=== PATIENT | male | born 1970 | race Caucasian/White ===

== ENCOUNTER 2018-06-24 02:37 | Outpatient (CLI) | payer MEDICARE, MEDICAID, SELFPAY ==
[2018-06-24 09:27] LABS: HCT 46.1 % (40.0-50.0); HGB 15.3 g/dL (13.5-17.5); Mean Corp. HGB Concentration 33.2 g/dL (32.0-36.0); Mean Corpuscular Hemoglobin 29.7 pg (27.0-33.0); Mean Corpuscular Volume 89.5 fL (80-95); Mean Platelet Volume 9.6 fL (8.0-11.0); Platelet Count 270 x1000/uL (130-400); RBC 5.15 m/cumm (4.50-6.00); RBC Distribution Width 14.2 % (11.8-14.1); White Blood Cell Count 7.83 k/cumm (4.4-10.8)
[2018-06-24 10:35] LABS: ALT 20 U/L (12-78); AST 22 U/L (15-37); Albumin 3.7 g/dL (3.4-5.0); Alkaline Phosphatase 95 U/L (46-116); Anion Gap 11.8 mmol/L (3-11); BUN 12 mg/dL (7-18); Bilirubin, Total 0.2 mg/dL (0.2-1.0); CO2 25.2 mmol/L (21.0-32.0); CREATININE 1.21 mg/dL (0.70-1.30); Calcium 8.7 mg/dL (8.5-10.1); Chloride 103 mmol/L (98-107); Cholesterol 151 mg/dL (50-200); Glucose 104 mg/dL (70-100); HDL Cholesterol 42 mg/dL (40-60); LDL CHOLESTEROL 96 mg/dL (<100); Magnesium 1.7 mg/dL (1.8-2.4); Potassium 4.4 mmol/L (3.5-5.1); Sodium 140 mmol/L (136-145); Total Protein 7.7 g/dL (6.4-8.2); Triglyceride 64 mg/dL (30-150)
== END 2018-06-24 02:57 ==
LOC: LOS 08:23 → LBO 08:24
PROVIDERS: PCP General Practice; Visit Provider Nurse Practitioner Family
DX: F33.1 Major depressive disorder, recurrent, moderate (principal); Z79.899 Other long term (current) drug therapy; R55 Syncope and collapse
CPT/HCPCS: 36415; 80053; 80061; 83721; 85027; 83735

== ENCOUNTER 2018-12-17 18:12 | Emergency (ER) | payer MEDICARE, MEDICAID, SELFPAY ==
[2018-12-17 18:13] VITALS: BP 115/76; PULSE 72; RESP 14; TEMP 36.8; O2SAT 95
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
[2018-12-17] MEDS: Acetaminophen 325 MG TAB 650 MG PO (19:05)
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
[2018-12-17 20:50] VITALS: BP 115/76; PULSE 72; RESP 14; O2SAT 95
== END 2018-12-17 20:48 | disposition home or self-care (01) ==
PROVIDERS: Emergency Provider Student in an Organized Health Care Education/Training Program; PCP General Practice
DX: R51 Headache (principal); M54.2 Cervicalgia; M54.5 Low back pain; V43.52XA Car driver injured in collision with other type car in traffic accident, initial encounter
CPT/HCPCS: 99284; 70450; 72100; 72125; L0172

== ENCOUNTER 2019-03-13 10:54 | Emergency (ER) | payer MEDICARE, MEDICAID, SELFPAY ==
[2019-03-13 11:39] VITALS: BP 130/79; PULSE 71; RESP 18; TEMP 36.7; O2SAT 93
--- NOTE | 2019-03-13 11:43 | W.ED.GENAD ---
Discharge Plan Disposition Patient Disposition: HOME Condition: Good Discharge Details Chief Complaint: Chest/Rib Clinical Impression: Chest wall injury Primary Care Provider: Jasper Paul ED Provider: Bernadette Key Home Meds and New Rx's Prescriptions: No Action olanzapine 10 MG tablet 10 mg PO HS RF: 0 hydroxyzine HCl 25 MG tablet 2 tab PO BID RF: 0 gabapentin 300 MG capsule 300 mg PO TID RF: 0 Discharge Instructions Instructions: Chest Wall Pain (ED) Additional Instructions: Rest activities as tolerated. Avoid any reinjury or trauma to the chest wall. Use Motrin or Tylenol for soreness if needed. Consider [id number] Lidoderm patches 4% on the area for 12 hours then remove for 12 hours. Be sure to continue deep breathing exercises 10 deep breaths every 1-2 hours while awake to exercise the lungs as discussed until your pain is fully relieved. Make follow-up appoint with your primary care doctor for reevaluation for any persistence of pain. Return for any worsening, alarming symptoms or concerns sooner if needed as discussed Discharge Data Discharge Date/Time-TO BE ENTERED AT DEPARTURE: 03/13/19 12:39 Medical Decision Making Is a very pleasant 48-year-old man who was helping a friend feeding pegs leaning over a fence made of wooden pallets and when his left chest wall was leaned up against the fencing he felt a pop and felt immediate pain in his chest wall. Injury occurred 2 days ago. Patient reports he presents today for persistence of pain and mild difficulty sleeping and positionally getting comfortable at night. Patient denies difficulty breathing, shortness of breath or dizziness. Patient does report pain with deep breathing, coughing, sneezing and change in position. Pain in the left chest wall is reproducible. Patient denies any hematuria. Denies any abdominal pain or distention. Patient is feeling well and has no associated fatigue otherwise. Patient has no history of rib injury in the past. X-rays of the chest wall were ordered. X-rays ultimately unremarkable for identifiable pneumothorax or fracture. Patient does not have any microscopic hematuria associated and vital signs are stable. Patient has no obvious abdominal tenderness on exam his abdomen is soft and nontender with no clear peritoneal signs, rebound or guarding. There is no abdominal wall bruising. We discussed potential risks of chest wall injury. Given patient's lack of hematuria, benign abdominal exam and normal chest x-ray both patient and I feel it is appropriate to discharge this patient home at this time. Deep breathing exercises were discussed, avoiding banding the chest wall was discussed. Pain management was discussed. We will try Tylenol and Motrin at home as well as topical lidocaine patches initially for pain control. Patient encouraged follow-up with his primary care doctor. Alarming signs and symptoms were discussed. The patient was stable and requested discharge. Prior to discharge, my usual and customary return precautions were reviewed with the patient - this included follow-up instructions and reasons to return to the Emergency Department if conditions worsens, does not improve as expected, or other new concerns arise. HPI General Date/Time Provider Initiated Documentation: 03/13/19 10:59. HPI Narrative: 48-year-old man presents for complaints of left rib injury. Patient reports he was leaning over a wooden pallet fence and he felt a pop in the left side of his ribs where the fence was abutting his chest wall. Patient denies neck or back pain. Patient denies difficulty breathing or shortness of breath or wheezing. Pain with deep breathing, coughing, moving or palpation of the area. Patient denies abdominal distention or pain. Denies any obvious hematuria or bowel changes. Eating and drink without difficulty. Patient reports injury occurred 2 days ago he has had some difficulty sleeping for the last 2 days which is what prompted his evaluation today. Patient denies any other concerning, injury. No history of rib fracture in the past. Denies headache or dizziness at this time. Normal energy. Improved with shallow breathing. worse with deep breathing coughing, sneezing, laughing or pushing on the area. Related Data Home Medications Medication Instructions Recorded Confirmed olanzapine 10 mg PO HS 04/27/14 03/13/19 hydroxyzine HCl 2 tab PO BID 01/26/16 03/13/19 gabapentin 300 mg PO TID 11/12/16 03/13/19 Allergies Allergy/AdvReac Type Severity Reaction Status Date / Time No Known Allergies Allergy Unverified 03/13/19 11:42 General Stated Complaint: Chest/Rib ELIZA: 3 Review of Systems All systems reviewed & are unremarkable except as noted in HPI and below Constitutional Constitutional: Denies chills, Denies fatigue, Denies fever(s), Denies headache(s) and Denies malaise ENT Ears, Nose, Mouth, and Throat: Denies headache(s) Cardiovascular Cardiovascular: Reports chest pain, Denies chest pain at rest, Denies chest pain with activity, Denies dyspnea and Denies dyspnea on exertion Respiratory Respiratory: Denies cough, Denies dyspnea, Denies dyspnea on exertion and Denies wheezing Genitourinary Genitourinary: Denies hematuria Neurologic Neurologic: Denies headache(s) Endocrine Endocrine: Denies fatigue Allergic/Immunologic Allergic/Immunologic: Denies wheezing [facility] Social History Smoking/Tobacco Use Status: Current every day Alcohol Intake: never Drug use: Occasionally Substance use type: marijuana Do you feel safe at home: Yes Exam Narrative Exam Narrative: CONST: Healthy appearing patient, in no acute distress. Well hydrated. Alert and alert. HENMT: Head nomocephalic, normal to inspection. Atraumatic. Hearing grossly normal. EYES: General normal appearance. Alignment normal. Eyelids normal. Conjunctiva normal. NECK: Normal visual inspection. FROM. Trachea midline. No Midline tenderness. CHEST: Normal insepection of the chest. Left-sided chest pain with palpation of the ribs anteriorly and mildly left anterior lateral. Approximately rib #9. No obvious flail chest. RESP: Normal respiratory effort. Speaking full sentences. No cough. No audible wheezing. No retractions. Breath sounds equal and full bilaterally. No rales, rhonchi or wheezing CARDIO: No JVD. Murmurs or rubs. Regular rate and rhythm. GI: Soft, nontender. No abdominal distention. No rebound, guarding or peritoneal signs. Back: No CVA tenderness noted MUSCULOSKELETAL: Normal Gait. FROM of all extremities. SKIN: Normal. Dry. No rashes. NEURO: Alert and awake. Speech clear. PSYCH: Normal affect. Cooperative. Course Vital Signs Vital signs: Vital Signs Temperature 36.7 C 03/13/19 11:39 Pulse 71 03/13/19 11:39 Respiratory Rate 18 03/13/19 11:39 Blood Pressure 130/79 03/13/19 11:39 Pulse Oximetry 93 L 03/13/19 11:39 Temperature 36.7 C 03/13/19 11:39 Temperature Source Skin 03/13/19 11:39 Pulse 71 03/13/19 11:39 Respiratory Rate 18 03/13/19 11:39 Blood Pressure 130/79 03/13/19 11:39 Blood Pressure Position Sitting 03/13/19 11:39 Pulse Oximetry 93 L 03/13/19 11:39 Oxygen Delivery Method Room Air 03/13/19 11:39 Oxygen Flow Rate 0 03/13/19 11:39
[2019-03-13 11:59] LABS: Bilirubin Negative (Negative); Blood Negative (Negative); Clarity Clear (Clear); Glucose Negative (Negative); Ketones Negative (Negative); Leukocyte Esterase Negative (Negative); Nitrite Negative (Negative); Urobilinogen 0.2 EU/dL (Up TO 0.2)
--- NOTE | 2019-03-13 12:00 | DI.RAD_ITS ---
EXAM: XR RIBS LT W PA LAT CHEST INDICATION: pain, rib injury. COMPARISON: No exams were available for comparison TECHNIQUE: 2D digital imaging was performed. FINDINGS: Heart size and pulmonary vasculature are within normal limits. The lungs are clear. No effusions, i nfiltrates, or rib fractures are identified. No pneumothoraces are identified. IMPRESSION: No acute pulmonary process.
[2019-03-13 12:09] LABS: Bacteria Negative HPF (Negative); C & S Indicated? No; Casts Negative LPF (Negative); Crystals Few Calcium Oxalate HPF (Negative); Epithelial Cells Negative HPF (Negative); Mucus Trace (Negative); RBC Negative (0-2); WBC Negative HPF (0-5)
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
== END 2019-03-13 12:39 | disposition home or self-care (01) ==
PROVIDERS: Emergency Provider Physician Assistant; PCP General Practice
DX: S29.9XXA Unspecified injury of thorax, initial encounter (principal); X58.XXXA Exposure to other specified factors, initial encounter
CPT/HCPCS: 99283; 71046; 71100; 81003; 81015; 99282

== ENCOUNTER 2020-08-13 17:42 | Outpatient (REF) | payer MEDICARE, MEDICAID, SELFPAY ==
[2020-08-13 18:59] LABS: Anion Gap 11.9 mmol/L (3-11); BUN 13 mg/dL (7-18); CO2 25.1 mmol/L (21.0-32.0); CREATININE 0.9 mg/dL (0.70-1.30); Calcium 8.6 mg/dL (8.5-10.1); Calculated LDL 105 mg/dL (<100); Chloride 105 mmol/L (98-107); Cholesterol 165 mg/dL (<200); Glucose 85 mg/dL (74-106); HDL Cholesterol 48 mg/dL (40-60); Potassium 3.8 mmol/L (3.5-5.1); Sodium 142 mmol/L (136-145); Triglyceride 60 mg/dL (<150)
[2020-08-14 17:50] LABS: PSA, Screening 0.4 ng/mL (0.0-3.5)
[2020-08-15 09:58] LABS: HIV-1/2 Ag & Ab Screen Negative (Negative)
[2020-08-15 10:55] LABS: Hepatitis C Ab w Rflx HCV PCR Negative (Negative)
[2020-08-15 10:57] LABS: Syphilis Serology (RPR) Negative (Negative)
[2020-08-15 12:41] LABS: Chlamydia Result Negative (Negative); GC Result Negative (Negative)
== END 2020-08-13 17:43 | disposition home or self-care (01) ==
LOC: NCHCN 17:42
PROVIDERS: PCP Physician Assistant; Visit Provider Physician Assistant
DX: Z11.3 Encounter for screening for infections with a predominantly sexual mode of transmission (principal); Z11.59 Encounter for screening for other viral diseases; Z12.5 Encounter for screening for malignant neoplasm of prostate; Z11.4 Encounter for screening for human immunodeficiency virus [HIV]; R79.89 Other specified abnormal findings of blood chemistry
CPT/HCPCS: 80048; 80061; 84153; 86803; 87389; 87491; 87591; 86592

== ENCOUNTER 2020-09-08 19:15 | Emergency (ER) | payer MEDICARE, MEDICAID, SELFPAY ==
--- NOTE | 2020-09-08 19:15 | RT.EKG_ITS ---
APPROVED REPORT Exam: Resting ECG Patient Location: E HR:72 bpm ECG Measurements Heart Rate 72 AXIS MS 122 P 44 QRSd 81 QRS 77 QT 386 T 55 QTc 423 Conclusion Sinus rhythm...normal P axis, V-rate 60- 99
[2020-09-08 19:24] VITALS: BP 120/73; PULSE 73; RESP 16; TEMP 36.7; O2SAT 97
[2020-09-08 19:27] VITALS: RESP 20
--- NOTE | 2020-09-08 19:40 | ED.GENADUL_ITS ---
Discharge Plan Disposition Patient Disposition: HOME Condition: Stable Discharge Details Clinical Impression: Chest pain Primary Care Provider: Sergei Loera ED Provider: Nic Jeffers Home Meds and New Rx's Prescriptions: New ibuprofen 600 mg tablet 600 mg PO TID Qty: 15 RF: 0 Continued olanzapine 10 MG tablet 10 mg PO HS RF: 0 hydroxyzine HCl 25 MG tablet 2 tab PO BID RF: 0 gabapentin 300 MG capsule 300 mg PO TID RF: 0 Discharge Instructions Additional Instructions: Chest x-ray shows emphysema changes only. EKG and cardiac enzymes normal. Screening test for blood clots normal. Pain is likely chest wall or pleurisy pain. Both are treated with Motrin which has been prescribes. Follow up with PCP next week if no improvemnt. Return to ED for shortness of breath, new/worse pain, fever, other concerns. Referrals: Sergei Loera [Primary Care Provider] - Medical Decision Making <Biju Paniagua MD - Last Filed: 09/08/20 19:46> 50 yo male who denies chronic medical problems, is a chronic smoker, who comes in with chief complaint of right sided sharp chest pain for 2 days. He denies having pain like this in the past and denies any fevers, does have a chronic cough that he feels is unchanged. No diaphoresis, nausea, vomit, abdomen pain and no radiation of the pain. Normal inspection of the chest, does have some mild tenderness over the right lateral chest in lateral clavicular line. Nocrepitus, clear lungs. Denies ivdu, does use marijuana occassionally. No abdomen tenderness. Suspect chest wall pain but given deep breaths make it worse will obtain d dimer to evaluate for possible PE. Will also obtain chest xray to evaluate for possible pneumothorax though unlikely given normal lung sounds. Heart score is 2 and symptoms seem atypical for acs but will obtain troponin. pt signed out to oncoming provider pending labs and chest xray results. Differential Diagnosis Differential Diagnosis: chest wall pain, PE, pleurisy, pneumonia, pneumothorax ECG Data Attestation: I personally reviewed and interpreted this ECG (s) as follows: Prior ECG tracings: not available for review Interpretation: sinus rhythm, rate of 72, pr 122, no acute st t wave ischemic findings <Nic Jeffers MD - Last Filed: 09/08/20 22:11> Patient signed out to me pending labs and CXR. He had presented with two days o f right upper pleuritic chest pain. Please see Dr. Paniagua's initial eval and plan. Patient without cardiac risk factor other than male and smoker. HEART score 2 and with pain constant for 2 days, one negative troponin felt sufficient. D-dimer normal and [place] score zero, no further work up for PE. CXR with bullous changes and emphysamatous changes only. Pain likely musculoskeletal or possible pleurisy but treatment with NSAIDs indicated. Follow up with PCP next week if no improvement. Return to ED for new/worse pain, SOB, fever, other concerns. Lab Data Lab results reviewed: Yes I reviewed the patient's lab results. Lab results narrative: unremarkable labs HPI <Biju Paniagua MD - Last Filed: 09/08/20 19:46> General Mode of arrival: ambulatory . Date/Time Provider Initiated Documentation: 09/08/20 19:15 . Limitations to Documentation: no limitations . Information obtained by: patient . History of Present Illness 50 year old M presents to the emergency department with the chief complaint of right sided chest pain, described as moderate, Patient reports no radiation. Patient started experiencing this day(s) (2) and it has been constant. No relieving factors improve symptom(s), Other factors that worsen symptoms (deep breaths) . Patient notes no other symptoms.. Patient did receive the following treatments prior to arrival, none Related Data Home Medications Medication Instructions Recorded Confirmed olanzapine 10 mg PO HS 04/27/14 09/08/20 hydroxyzine HCl 2 tab PO BID 01/26/16 09/08/20 gabapentin 300 mg PO TID 11/12/16 09/08/20 ibuprofen 600 mg PO TID #15 tab 09/08/20 Previous Rx's Medication Instructions Recorded ibuprofen 600 mg PO TID #15 tab 09/08/20 Allergies Allergy/AdvReac Type Severity Reaction Status Date / Time No Known Allergies Allergy Unverified 09/08/20 19:27 General Stated Complaint: Chest Pain ELIZA: 2 Review of Systems <Biju Paniagua MD - Last Filed: 09/08/20 19:46> All systems reviewed & are unremarkable except as noted in HPI and below Constitutional Constitutional: Denies chills, Denies fever(s) and Denies weakness Cardiovascular Cardiovascular: Denies dyspnea Respiratory Respiratory: Denies cough and Denies dyspnea Gastrointestinal Gastrointestinal: Denies abdominal pain, Denies nausea and Denies vomiting Musculoskeletal Musculoskeletal: Denies joint swelling Integumentary/Breasts Skin/Breast: Denies rash Neurologic Neurologic: Denies weakness PFS <Biju Paniagua MD - Last Filed: 09/08/20 19:46> Social History Smoking/Tobacco Use Status: Current every day Smoking risk assessment performed?: Yes Alcohol Intake: never Drug use: Occasionally Substance use type: marijuana Do you feel safe at home: Yes Do you feel safe in your relationship?: Yes Exam <Biju Paniagua MD - Last Filed: 09/08/20 19:46> Const General: no acute distress Orientation: alert HENOR Head: normal to inspection Ears: external ears normal General nose exam: external nose normal Mouth: moist mucous membranes Eyes General: appearance normal, both eyes and all related structures Neck Neck: normal visual inspection Chest Chest: normal inspection of the chest Resp Effort & Inspection: normal respiratory effort and able to speak in complete sentences Cardio Rate: regular rate Skin General skin exam: no rashes or lesions noted Neuro General: patient alert and patient oriented x3 Extrem General: normal to inspection Psych Mental Status: mental status grossly normal Course <Biju Paniagua MD - Last Filed: 09/08/20 19:46> Vital Signs Vital signs: Vital Signs Temperature 36.7 C 09/08/20 19:24 Pulse 73 09/08/20 19:24 Respiratory Rate 16 09/08/20 19:24 Blood Pressure 120/73 09/08/20 19:24 Pulse Oximetry 97 09/08/20 19:24 Temperature 36.7 C 09/08/20 19:24 Temperature Source Temporal Artery Scan 09/08/20 19:24 Pulse 73 09/08/20 19:24 Respiratory Rate 20 09/08/20 19:27 Respiratory Effort Non-Labored 09/08/20 19:27 Respiratory Depth Normal 09/08/20 19:27 Respiratory Pattern Normal 09/08/20 19:27 Blood Pressure 120/73 09/08/20 19:24 Blood Pressure Position Sitting 09/08/20 19:24 Pulse Oximetry 97 09/08/20 19:24 Oxygen Delivery Method Room Air 09/08/20 19:24 Oxygen Flow Rate 0 09/08/20 19:24 Pain Level 7 09/08/20 19:27 Sign Out <Biju Paniagua MD - Last Filed: 09/08/20 19:46> Sign Out Data: Sign Out Comment: pleuritic right sided chest pain, pending labs and chest xray Last updated by Biju Paniagua MD at 09/08/20 19:47
[2020-09-08] MEDS: Aspirin 81 MG CHEW 324 MG CH (20:05)
--- NOTE | 2020-09-08 20:06 | DI.RAD_ITS ---
EXAM: XR CHEST 2V PA LATERAL CLINICAL HISTORY: right sided chest pain. TECHNIQUE: 2D digital imaging was performed. COMPARISON: CR,XR XR RIBS LT W PA LAT CHEST from 03/13/2019 FINDINGS: Heart size is normal. The mediastinum is not widened. No confluent infiltrates nor pleural effusions. No pneumothorax. No pulmonary edema. Slightly incr eased lung markings are unchanged. IMPRESSION: No acute pulmonary findings. DATA REPOSITORY: RADIATION DOSE DELIVERED:
[2020-09-08 20:10] LABS: Abs Immature Grans 0.02 10^3/uL (0.0-0.06); Absolute Basophil Count 0.07 10^3/uL (0.0-0.2); Absolute Eosinophil Count 0.16 10^3/uL (0.0-0.7); Absolute Lymphocyte Count 2.91 10^3/uL (1.2-3.4); Absolute Monocyte Count 0.67 10^3/uL (0.1-0.8); Absolute Neutrophil Count 5.74 10^3/uL (1.2-6.7); Basophils % 0.7; Eosinophils % 1.7; HCT 41.6 % (40.0-50.0); HGB 13.9 g/dL (13.5-17.5); Immature Grans % 0.2; Lymphocytes % 30.4; MCH 31.4 pg (27.0-33.0); MCHC 33.4 % (32.0-36.0); MCV 94.1 fL (80-95); MPV 9.5 fL (8.0-11.0); Nucleated RBC 0 %; Platelet Count 327 10^3/uL (130-400); RBC 4.42 10^6/uL (4.36-5.78); RDW 13.2 % (11.8-14.1); RDW-SD 45.7 fL; WBC 9.57 10^3/uL (4.4-10.8)
[2020-09-08 20:39] LABS: ALT 22 U/L (16-63); AST 13 U/L (15-37); Albumin 3.6 g/dL (3.4-5.0); Alkaline Phosphatase 88 U/L (46-116); Anion Gap 5.6 mmol/L (3-11); BUN 12 mg/dL (7-18); Bilirubin, Total 0.4 mg/dL (0.2-1.0); CO2 31.4 mmol/L (21.0-32.0); CREATININE 1.2 mg/dL (0.70-1.30); Calcium 9.1 mg/dL (8.5-10.1); Chloride 105 mmol/L (98-107); Glucose 99 mg/dL (74-106); Magnesium 1.9 mg/dL (1.8-2.4); Potassium 3.8 mmol/L (3.5-5.1); Sodium 142 mmol/L (136-145); Total Protein 7.5 g/dL (6.4-8.2)
[2020-09-08 20:47] LABS: Troponin I < 0.05 ng/mL (<0.06)
--- NOTE | 2020-09-08 21:08 | DI.VRAD_ITS ---
PROCEDURE INFORMATION: Exam: XR Chest Exam date and time: 09/08/2020 8:07 PM Age: 50 years old Clinical indication: Chest wall pain; Patient HX: Right sided chest pain. TECHNIQUE: Imaging protocol: XR of the chest. Views: 2 views. COMPARISON: CR XR RIBS LT W PA LAT CHEST 03/13/2019 11:54 AM FINDINGS: Lungs: Bullous emphysematous changes are present. No consolidation. Pleural spaces: Unremarkable. No pleural effusion. No pneumothorax. Heart/Mediastinum: Unremarkable. No cardiomegaly. Bones/joints: Unremarkable. IMPRESSION: 1. Bullous emphysematous changes. 2. No acute findings. Dictated and Authenticated by: Mauricio Gordillo MD. Ordering:HIRA Ivy MD
[2020-09-08 21:32] LABS: D-Dimer 393 ng/mlFEU (<500)
[2020-09-08 22:02] VITALS: BP 120/73; PULSE 73; RESP 20; O2SAT 97
== END 2020-09-08 22:00 | disposition home or self-care (01) ==
PROVIDERS: Emergency Medicine; Emergency Provider Emergency Medicine; PCP Physician Assistant
DX: R07.81 Pleurodynia (principal); F17.210 Nicotine dependence, cigarettes, uncomplicated
CPT/HCPCS: 36415; 80053; 93005; 99285; 71046; 83735; 84484; 85025; 85379; 93010; 99284

== ENCOUNTER 2023-01-21 09:25 | Outpatient (CLI) | payer MEDICARE, MEDICAID, SELFPAY ==
[2023-01-21 09:25] LABS: Abs Immature Grans 0.07 10^3/uL (0.0-0.06); Absolute Basophil Count 0.07 10^3/uL (0.0-0.2); Absolute Lymphocyte Count 1.96 10^3/uL (1.2-3.4); Absolute Monocyte Count 0.63 10^3/uL (0.1-0.8); Absolute Neutrophil Count 5.02 10^3/uL (1.2-6.7); Basophils % 0.9; Eosinophils % 2.5; HCT 45.4 % (40.0-50.0); HGB 15.5 g/dL (13.5-17.5); Immature Grans % 0.9; Lymphocytes % 24.7; MCH 31.8 pg (27.0-33.0); MCHC 34.1 % (32.0-36.0); MCV 93 fL (80-95); MPV 8.6 fL (8.0-11.0); Monocytes % 7.9; Neutrophils % 63.1; Platelet Count 367 10^3/uL (130-400); RBC 4.87 10^6/uL (4.36-5.78); RDW-SD 44.6 fL; WBC 7.95 10^3/uL (4.4-10.8)
[2023-01-21 09:48] LABS: ALT 26 U/L (16-63); AST 20 U/L (15-37); Albumin 3.6 g/dL (3.4-5.0); Alkaline Phosphatase 104 U/L (46-116); Anion Gap 7.9 mmol/L (3-11); BUN 14 mg/dL (7-18); Bilirubin, Total 0.5 mg/dL (0.2-1.0); CO2 25.1 mmol/L (21.0-32.0); CREATININE 1.1 mg/dL (0.70-1.30); Calcium 8.9 mg/dL (8.5-10.1); Calculated LDL 109 mg/dL (<100); Chloride 101 mmol/L (98-107); Cholesterol 182 mg/dL (<200); Estimated GFR 79.77 (mL/min/1.73m2); Glucose 116 mg/dL (74-106); HDL Cholesterol 58 mg/dL (40-60); Sodium 134 mmol/L (136-145); Total Protein 8.1 g/dL (6.4-8.2); Triglyceride 78 mg/dL (<150)
[2023-01-21 10:54] LABS: Hemoglobin A1C 5.5 % (<5.7)
== END 2023-01-21 09:26 | disposition home or self-care (01) ==
PROVIDERS: PCP Physician Assistant; Visit Provider Nurse Practitioner Psychiatric/Mental Health
DX: F60.81 Narcissistic personality disorder (principal); F32.4 Major depressive disorder, single episode, in partial remission
CPT/HCPCS: 36415; 80053; 80061; 83036; 85025

== ENCOUNTER 2023-03-26 09:27 | Emergency (ER) | payer MEDICARE, MEDICAID, SELFPAY ==
[2023-03-26 09:32] VITALS: BP 124/75; PULSE 80; RESP 16; TEMP 37.1; O2SAT 95
--- NOTE | 2023-03-26 09:57 | ED.GENADUL_ITS ---
Discharge Plan Disposition Patient Disposition: Home Condition: Stable Discharge Details Clinical Impression: Strain of lumbar paraspinous muscle Primary Care Provider: Sergei Loera ED Provider: Earnestine Ordonez Home Meds and New Rx's Prescriptions: New lidocaine 5 % adhesive patch,medicated 1 patch topical DAILY Qty: 15 0RF Rx Instructions: leave on most painful area for up to 12 hrs No Action olanzapine 10 MG tablet 10 mg PO HS hydroxyzine HCl 25 MG tablet 2 tab PO BID ibuprofen 600 mg tablet 600 mg PO TID Qty: 15 0RF gabapentin 300 MG capsule 300 mg PO TID Discharge Instructions Instructions: Low Back Strain (ED) Additional Instructions: Take the flexeril muscle relaxer as directed. This may make you sleepy. You may alternate ice and heat. You may also apply lidocaine patches or similar which you can get [id number]. Please take Tylenol or Ibuprofen with food every 4-6 hours as needed for pain and swelling. No evidence of bony abnormality noted on the x-rays. You do have a small amount of narrowing of the L4 and L5 vertebral discs. Follow up with primary care provider in 3-5 days. Return to ED sooner if any worsening loss of bowel or bladder control, numbness tingling or weakness or concerns. Increase oral fluids. Stand Alone Forms: Work Release Referrals: Sergei Loera [Primary Care Provider] - 5 days Medical Decision Making 52 year old male presents to the ED with Chief complaint of right lower lumbar sharp back pain which began yesterday after getting out of his vehicle. Denies any injuries no falls, denies any radiation of pain no loss of bowel or bladder control no saddle anesthesia. He has been taking Tylenol with little to no relief at home. He has no midline L-spine tenderness does have some right paraspinous tenderness and muscle spasm. X-ray ordered, lidocaine patch, Flexeril urinalysis No evidence of osseous abnormality on XRay. This text was generated using [employer]gen[employer] system, please disregard any oddities of phrase or misspellings. This text was generated using [employer] system, please disregard any odd ities of phrase or misspellings. Imaging Data Radiologic Study: Imaging: X-Ray Radiologist's impression: XR LUMBAR SPINE COMPLETE EXAM: XR LUMBAR SPINE COMPLETE CLINICAL HISTORY: Back pain. TECHNIQUE: 2D digital imaging was performed. COMPARISON: No exams were available for comparison FINDINGS: Five views No evidence of fracture, listhesis, nor pars defects. Mild disc space narrowing at L4-5 noted. Bone density normal. No osseous lesions. No facet arthropathy evident. Sacroiliac joints appear unremarkable. There is no scoliosis. IMPRESSION: No significant osseous findings in the lumbosacral spinal column. HPI General Mode of arrival: ambulatory . Date/Time Provider Initiated Documentation: 03/26/23 09:44 . Limitations to Documentation: no limitations . Information obtained by: patient, RN notes reviewed and old records reviewed . HPI Narrative: 52 year old male presents to the ED with Chief complaint of right lower lumbar sharp back pain which began yesterday after getting out of his vehicle. Denies any injuries no falls, denies any radiation of pain no loss of bowel or bladder control no saddle anesthesia. He has been taking Tylenol with little to no relief at home. He has no midline L-spine tenderness does have some right paraspinous tenderness and muscle spasm. Related Data Home Medications Medication Instructions Recorded Confirmed olanzapine 10 mg tablet 10 mg PO HS 04/27/14 09/08/20 hydroxyzine HCl 25 mg tablet 2 tab PO BID 01/26/16 09/08/20 gabapentin 300 mg capsule 300 mg PO TID 11/12/16 09/08/20 ibuprofen 600 mg tablet 600 mg PO TID #15 tabs 09/08/20 lidocaine 5 % topical patch 1 patch topical DAILY #15 ea 03/26/23 Previous Rx's Medication Instructions Recorded ibuprofen 600 mg tablet 600 mg PO TID #15 tabs 09/08/20 lidocaine 5 % topical patch 1 patch topical DAILY #15 ea 03/26/23 Allergies Allergy/AdvReac Type Severity Reaction Status Date / Time No Known Allergies Allergy Unverified 09/08/20 19:27 General Stated Complaint: Nk/Back Pain ELIZA: 3 Review of Systems All systems reviewed & are unremarkable except as noted in HPI and below Musculoskeletal Musculoskeletal: Reports back pain, Denies numbness and Denies tingling Neurologic Neurologic: Denies numbness and Denies tingling PFSH All Active Problems (Updated 03/26/23 @ 11:00 by Earnestine Ordonez NP) Strain of lumbar paraspinous muscle (Acute) Chest pain (Acute) Social History Smoking/Tobacco Use Status: Current every day Tobacco Type: cigarettes Tobacco: How many years used: 20 Smoking risk assessment performed?: Yes Alcohol Intake: never Drug use: Occasionally Substance use type: marijuana Housing: apartment Do you feel safe at home: Yes Do you feel safe in your relationship?: Yes Exam Narrative Exam Narrative: Constitutional: Alert and oriented x3. Appears stated age. Normal body habitus. Head: Normocephalic, no trauma. Eyes: Pupils PERRL, Red reflex noted, EOM's intact. Eyelids symmetrical without lesions, discharge, or swelling. ENT: Bilateral TM's WNL, External ear normal to inspection, no mastoid TTP, swelling, or erythema, Nasal turbinates WNL, no nasal discharge. Normal dentition, Posterior pharynx WNL, no exudate. Chest: RRR, Normal S1, S2, distal pulses intact. Resp: Lungs clear to auscultation bilaterally, no wheezes, rales, or rhonchi. Abdomen: Soft, non-distended, Normoactive bowel sounds all 4 quads. Musculoskeletal: Normal gait, 5/5 strength to all four extremities. Skin: No suspicious rashes or lesions. Capillary refill less than 2 sec. Neurologic: Cranial nerves II-XII intact. Alert and oriented x 3. Motor: No deficits noted. Sensory: Intact bilaterally all 4 extremities. Reflexes: DTR's intact bilaterally.. Hematologic/Lymphatic: No ecchymosis, no lymphadenopathy. Back/Spine/Pelvis Back: no CVA tenderness Cervical Spine: normal cervical lordosis Thoracic/Lumbar Spine: thoracic and lumbar spine normal to inspection and paraspinal tenderness Course Vital Signs Vital signs: Vital Signs Temperature 37.1 C 03/26/23 09:32 Pulse 80 03/26/23 09:32 Respiratory Rate 16 03/26/23 09:32 Blood Pressure 124/75 03/26/23 09:32 Pulse Oximetry 95 03/26/23 09:32 Temperature 37.1 C 03/26/23 09:32 Temperature Source Skin 03/26/23 09:32 Pulse 80 03/26/23 09:32 Respiratory Rate 16 03/26/23 09:32 Respiratory Effort Normal, Non-Labored 03/26/23 09:42 Blood Pressure 124/75 03/26/23 09:32 Blood Pressure Position Sitting 03/26/23 09:32 Pulse Oximetry 95 03/26/23 09:32 Oxygen Delivery Method Room Air 03/26/23 09:32 Oxygen Flow Rate 0 03/26/23 09:32 Pain Level 7 03/26/23 09:32
[2023-03-26] MEDS: Lidocaine 5% Patch 1 PATCH TP (10:03)
[2023-03-26] MEDS: Cyclobenzaprine 10 MG TAB PO (10:03)
--- NOTE | 2023-03-26 10:43 | DI.RAD_ITS ---
Exam(s) XR LUMBAR SPINE COMPLETE EXAM: XR LUMBAR SPINE COMPLETE CLINICAL HISTORY: Back pain. TECHNIQUE: 2D digital imaging was performed. COMPARISON: No exams were available for comparison FINDINGS: Five views No evidence of fracture, listhesis, nor pars defects. Mild disc space narrowing at L4-5 noted. Bone density normal. No osseous lesions. No facet arthropathy evident. Sacroiliac joints appear unrema rkable. There is no scoliosis. IMPRESSION: No significant osseous findings in the lumbosacral spinal column. DATA REPOSITORY: RADIATION DOSE DELIVERED:
[2023-03-26] MEDS: Cyclobenzaprine 10 MG TAB, 3 TABS/BTL PO (11:00)
[2023-03-26 11:08] VITALS: PULSE 80; RESP 16
== END 2023-03-26 11:10 | disposition home or self-care (01) ==
PROVIDERS: Emergency Provider Registered Nurse Emergency; PCP Physician Assistant
DX: S39.012A Strain of muscle, fascia and tendon of lower back, initial encounter
CPT/HCPCS: 99283; 72110

== ENCOUNTER 2023-05-07 09:10 | Emergency (ER) | payer MEDICARE, MEDICAID, SELFPAY ==
[2023-05-07 09:19] VITALS: BP 130/79; PULSE 66; RESP 16; TEMP 38; O2SAT 98
--- NOTE | 2023-05-10 08:14 | ED.GENADUL_ITS ---
Discharge Plan Discharge Details Chief Complaint: Orthopedic Primary Care Provider: Sergei Loera ED Provider: Teri Luis Home Meds and New Rx's Prescriptions: No Action olanzapine 10 MG tablet 10 mg PO HS hydroxyzine HCl 25 MG tablet 2 tab PO BID ibuprofen 600 mg tablet 600 mg PO TID Qty: 15 0RF gabapentin 300 MG capsule 300 mg PO TID lidocaine 5 % adhesive patch,medicated 1 patch topical DAILY Qty: 15 0RF Rx Instructions: leave on most painful area for up to 12 hrs Discharge Data Discharge Date/Time-TO BE ENTERED AT DEPARTURE: 05/07/23 10:36 Medical Decision Making 52-year-old male presenting with injury to right hand, specifically right fourth digit, neurovascularly intact, swelling noted to MCP on dorsal aspect of hand, small abrasion which is well-healing without evidence of secondary cellulitis, difficulty with flexion at the MCP joint on fourth digit, no tenderness to wrist or to distal phalanx X-ray was ordered, however secondary to trauma presentation in the emergency de partment, resources were diverted and x-ray was delayed Patient left prior to x-ray and repeat discussion, patient was alert, oriented, of decisional capacity at time of my evaluation, initially temperature was reviewed at 38, we are unable to recheck this as patient left prior to reassessmenc/recheck of vitals HPI General Date/Time Provider Initiated Documentation: 05/07/23 09:45 . 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 He has pain to the base of his right fourth digit. He states his tetanus is up-to-date, he has a small abrasion in this area, denies any additional injuries. This occurred approximately 3 days prior to arrival and patient presents secondary to persistent symptoms Related Data Home Medications Medication Instructions Recorded Confirmed olanzapine 10 mg tablet 10 mg PO HS 04/27/14 09/08/20 hydroxyzine HCl 25 mg tablet 2 tab PO BID 01/26/16 09/08/20 gabapentin 300 mg capsule 300 mg PO TID 11/12/16 09/08/20 ibuprofen 600 mg tablet 600 mg PO TID #15 tabs 09/08/20 lidocaine 5 % topical patch 1 patch topical DAILY #15 ea 03/26/23 Previous Rx's Medication Instructions Recorded ibuprofen 600 mg tablet 600 mg PO TID #15 tabs 09/08/20 lidocaine 5 % topical patch 1 patch topical DAILY #15 ea 03/26/23 Allergies Allergy/AdvReac Type Severity Reaction Status Date / Time No Known Allergies Allergy Unverified 09/08/20 19:27 General Stated Complaint: Orthopedic ELIZA: 4 PFSH All Active Problems (Updated 05/07/23 @ 19:53 by CORINA Chapman) Contusion of right hand (Acute) Chest pain (Acute) Social History Smoking/Tobacco Use Status: Current every day Tobacco Type: cigarettes Tobacco: How many years used: 20 Smoking risk assessment performed?: Yes Alcohol Intake: never Drug use: Occasionally Substance use type: marijuana Housing: apartment Do you feel safe at home: Yes Do you feel safe in your relationship?: Yes Course Vital Signs Vital signs: Vital Signs Temperature 38 C H 05/07/23 09:19 Pulse 66 05/07/23 09:19 Respiratory Rate 16 05/07/23 09:19 Blood Pressure 130/79 05/07/23 09:19 Pulse Oximetry 98 05/07/23 09:19 Temperature 38 C H 05/07/23 09:19 Temperature Source Skin 05/07/23 09:19 Pulse 66 05/07/23 09:19 Respiratory Rate 16 05/07/23 09:19 Blood Pressure 130/79 05/07/23 09:19 Blood Pressure Position Sitting 05/07/23 09:19 Pulse Oximetry 98 05/07/23 09:19 Oxygen Delivery Method Room Air 05/07/23 09:19 Oxygen Flow Rate 0 05/07/23 09:19 Pain Level 3 05/07/23 09:19
== END 2023-05-07 10:36 ==
LOC: ER 09:32
PROVIDERS: Emergency Provider Physician Assistant; PCP Physician Assistant
DX: Z53.21 Procedure and treatment not carried out due to patient leaving prior to being seen by health care provider (principal)

== ENCOUNTER 2023-05-07 18:19 | Emergency (ER) | payer MEDICARE, MEDICAID, SELFPAY ==
[2023-05-07 18:32] VITALS: BP 141/98; PULSE 75; RESP 12; TEMP 36.2; O2SAT 97
--- NOTE | 2023-05-07 18:49 | ED.GENADUL_ITS ---
Discharge Plan Disposition Patient Disposition: Home Condition: Stable Discharge Details Clinical Impression: Contusion of right hand Primary Care Provider: Sergei Loera ED Provider: Sam Wing Home Meds and New Rx's Prescriptions: Continued olanzapine 10 MG tablet 10 mg PO HS hydroxyzine HCl 25 MG tablet 2 tab PO BID ibuprofen 600 mg tablet 600 mg PO TID Qty: 15 0RF gabapentin 300 MG capsule 300 mg PO TID lidocaine 5 % adhesive patch,medicated 1 patch topical DAILY Qty: 15 0RF Rx Instructions: leave on most painful area for up to 12 hrs Discharge Instructions Instructions: Contusion in Adults (ED) Additional Instructions: You were seen in the emergency department for the contusion of your right fourth knuckle, there is no fracture seen on your x-ray, you have normal strength and range of motion of the finger and I do not suspect you have a tendon rupture. Please continue to rest, ice, compress and elevate the hand, please use therapeutic dosing of Tylenol (acetamenophen) & Advil (ibuprofen) in an alternating fashion as follows: Take 1000mg of Tylenol every 6 hours without missing doses- that is 4 times per day. Care Home in between the Tylenol dosings, take 400-600mg of Advil also on a 6 hour schedule, that is also 4 times per day. The daily maximum dosing of Tylenol is 4000mg, and the daily maximum dosing of Advil is 2400mg. This is safe to do for weeks. Please note that some common cold medications & prescription pain medications may contain acetamenophen and you need to read OTC drug labels and factor that in to maximum daily dosings. Please follow-up with orthopedic visit if you continue to have this odd sensation around your extensor tendon of the fourth finger but I think this is only due to the localized swelling and it should resolve when the contusion heals. Referrals: Sergei Loera [Primary Care Provider] - Medical Decision Making This dictation utilizes [id number] dictation software and may contain unedited grammatical errors. 52 y/o M presents to ED today with a chief complaint of R hand pain, car anthony dropped on finger- R-hand dominant. Patient has localized swelling without bruising to the dorsal 4th MCP joint/knuckle. Patients' medical history: noncontributory. Family and social history: noncontributory. Pertinent exam findings / vital signs include R UE: Mild swelling without crepitus to the right fourth MCP on the dorsal surface of the hand without laceration, no bruising, strength 5/5 in all ranges of motion of the finger, able to flex and extend, sensation intact distally, no proximal pain. Differential / pathologies of concern include fracture, contusion, tendon injury. Diagnostic studies of: -XR R Hand - no acute fracture or abnormality seen. Interventions of: -none, recommend rice therapy/APAP/NSAIDs. ED Course/Assessment/Plan: Recommend that the patient continue to RICE his knuckle as well as use therapeutic dosings of Tylenol and ibuprofen, follow-up with orthopedics for persistent abnormal sensation in the extensor tendon over the fourth MCP but I think this is related to localized swelling and not tendon rupture. Findings not consistent with fracture or neurovascular compromise. Disposition of contusion of right hand. Patient verbalized understanding of the plan and return to ED criteria and engaged in shared decision making. Medical Records Medical records reviewed: Yes I reviewed the patient's medical records. Imaging Data Radiologic Study: Imaging: X-Ray My impression: No acute fracture, no cortical irregularities at area of tenderness/swelling HPI General Date/Time Provider Initiated Documentation: 05/07/23 18:48 . HPI Narrative: 52 year-old male presents to ED today by POV/ambulating with a chief complaint of R 4th MCP swelling (R-hand dominant), pain with onset today when a car anthony dropped on his hand. Quality described as throbbing, feels numb when he extends his finger, no radiation to strength or ROM deficit, lesion, ecchymosis. Severity is described as 5-6/10. Palliating factors include has been icing. Provoking factors include nothing specific. Patient not anticoagulated. Related Data Home Medications Medication Instructions Recorded Confirmed olanzapine 10 mg tablet 10 mg PO HS 04/27/14 09/08/20 hydroxyzine HCl 25 mg tablet 2 tab PO BID 01/26/16 09/08/20 gabapentin 300 mg capsule 300 mg PO TID 11/12/16 09/08/20 ibuprofen 600 mg tablet 600 mg PO TID #15 tabs 09/08/20 lidocaine 5 % topical patch 1 patch topical DAILY #15 ea 03/26/23 Previous Rx's Medication Instructions Recorded ibuprofen 600 mg tablet 600 mg PO TID #15 tabs 09/08/20 lidocaine 5 % topical patch 1 patch topical DAILY #15 ea 03/26/23 Allergies Allergy/AdvReac Type Severity Reaction Status Date / Time No Known Allergies Allergy Unverified 09/08/20 19:27 General Stated Complaint: Orthopedic ELIZA: 4 Review of Systems All systems reviewed & are unremarkable except as noted in HPI and below PFSH All Active Problems (Updated 05/07/23 @ 19:53 by CORINA Chapman) Contusion of right hand (Acute) Chest pain (Acute) Social History Smoking/Tobacco Use Status: Current every day Tobacco Type: cigarettes Tobacco: How many years used: 20 Smoking risk assessment performed?: Yes Alcohol Intake: never Drug use: Occasionally Substance use type: marijuana Housing: apartment Do you feel safe at home: Yes Do you feel safe in your relationship?: Yes Exam Narrative Exam Narrative: GENERAL APPEARANCE: Well-nourished, non-toxic, awake and alert, atraumatic, no acute distress. SKIN: Warm, pink, dry, intact, without rashes/lesions/ulcerations. HEAD: Normocephalic, atraumatic, normal hair distribution for gender/age. EYES: Pupils PERRLA, EOMs intact without nystagmus, normal conjunctiva, no exudates on lids/lashes. ENT: Nares patent, no circumoral cyanosis, no facial swelling NECK: Supple, trachea midline, painless cervical ROM. LUNGS/CHEST: Non-labored respirations, normal A/P diameter, symmetrical expansion, no chest wall deformity HEART (CV/PV): Regular rate, R radial pulse 2+, no peripheral edema, no JVD. ABDOMEN: Soft, non-distended, no guarding. MSK: Normal ROM, no swelling/deformity to bilateral UEs or LEs, moving all extremities without weakness, no cyanosis, spine midline without tenderness, normal curvature. R UE: Mild swelling without crepitus to the right fourth MCP on the dorsal surface of the hand without laceration, no bruising, strength 5/5 in all ranges of motion of the finger, able to flex and extend, sensation intact distally, no proximal pain NEURO: Mental Status AAOx4 - alert to person, place, time, events No facial droop, no forehead involvement. Motor: No focal weakness - strength 5/5 in bilateral UEs and LEs, proximal and distal, symmetric. Sensory: sensation intact to light touch globally. Gait normal: patient ambulated without ataxia into ED room. PSYCH: euthymic, cooperative, pleasant, appropriate speech Course Vital Signs Vital signs: Vital Signs Temperature 36.2 C L 05/07/23 18:32 Pulse 75 05/07/23 18:32 Respiratory Rate 12 05/07/23 18:32 Blood Pressure 141/98 H 05/07/23 18:32 Pulse Oximetry 97 05/07/23 18:32 Temperature 36.2 C L 05/07/23 18:32 Pulse 75 05/07/23 18:32 Respiratory Rate 12 05/07/23 18:32 Blood Pressure 141/98 H 05/07/23 18:32 Pulse Oximetry 97 05/07/23 18:32 Oxygen Delivery Method Room Air 05/07/23 18:32 Oxygen Flow Rate 0 05/07/23 18:32
--- NOTE | 2023-05-07 19:15 | DI.RAD_ITS ---
Exam(s) XR HAND RT COMPLETE EXAM: XR HAND RT COMPLETE CLINICAL HISTORY: R hand 4th knuckle pain. TECHNIQUE: 2D digital imaging was performed of the right hand. Three images were obtained. AP, late ral and oblique views were obtained. COMPARISON: No exams were available for comparison FINDINGS: BONES: No acute fracture is present. No bony destructive lesion is seen. There is an old fracture def ormity of the 5th metacarpal bone. The 5th fingers held in flexion at the DIP joint. JOINTS: No dislocation present. SOFT TISSUE: Normal. IMPRESSION: No acute fracture or dislocation. DATA REPOSITORY: RADIATION DOSE DELIVERED:
--- NOTE | 2023-05-07 20:25 | DI.VRAD_ITS ---
PROCEDURE INFORMATION: Exam: XR Right Hand Exam date and time: 05/07/2023 7:30 PM Age: 52 years old Clinical indication: Injury or trauma; Other: Heavy object landed on right hand; Blunt trauma (contusions or hematomas); Patient HX: Previous broken right 5th digit TECHNIQUE: Imaging protocol: Radiologic exam of the right hand. Views: 3 or more views. COMPARISON: No relevant prior studies available. FINDINGS: Bones/joints: There is chronic deformity of the 5th metacarpal compatible with old, healed boxer's fracture. The phalanges of the 5th finger held in partial flexion. Osseous alignment is otherwise normal. No acute fracture or significant arthritic change. Soft tissues: Normal. IMPRESSION: No acute abnormality Dictated and Authenticated by: Jean Grande MD. Ordering:LAYNE Vargas MD
== END 2023-05-07 20:04 | disposition home or self-care (01) ==
PROVIDERS: Emergency Provider Physician Assistant; PCP Physician Assistant
DX: M79.642 Pain in left hand (principal); S60.221A Contusion of right hand, initial encounter; W22.8XXA Striking against or struck by other objects, initial encounter
CPT/HCPCS: 99283; 73130

== ENCOUNTER 2025-01-22 14:12 | Emergency (ER) | payer MEDICARE, MEDICAID, SELFPAY ==
[2025-01-22 14:16] VITALS: BP 114/74; PULSE 66; RESP 16; TEMP 36.6; O2SAT 94
--- NOTE | 2025-01-22 14:31 | W.ED.GENAD ---
Discharge Plan Disposition Patient Disposition: Eloped Condition: Stable Discharge Details Clinical Impression: Cellulitis of finger, left Primary Care Provider: Sergei Loera ED Provider: Biju Paniagua Home Meds and New Rx's Prescriptions: New sulfamethoxazole-trimethoprim [Bactrim DS] 800-160 mg tablet 1 tab PO BID Qty: 14 0RF amoxicillin-pot clavulanate 875-125 mg tablet 1 tab PO BID Qty: 14 0RF Continued olanzapine 10 MG tablet 10 mg PO HS hydroxyzine HCl 25 MG tablet 2 tab PO BID ibuprofen 600 mg tablet 600 mg PO TID Qty: 15 0RF gabapentin 300 MG capsule 300 mg PO TID Discontinued lidocaine 5 % adhesive patch,medicated 1 patch topical DAILY Qty: 15 0RF Rx Instructions: leave on most painful area for up to 12 hrs Discharge Instructions Additional Instructions: I was concerned you have an infection of your tendon sheath in your finger which if not treated with surgery can lead to loss of your finger and also worsen infection spreading to your hand or the rest your body. You chose to leave AGAINST MEDICAL ADVICE. You can always return if you change your mind and would want further workup and treatment. Discharge Data Discharge Date/Time-TO BE ENTERED AT DEPARTURE: 01/22/25 17:07 HPI General Mode of arrival: ambulatory. Date/Time Provider Initiated Documentation: 01/22/25 14:15. Limitations to Documentation: no limitations. Information obtained by: patient. History of Present Illness 54 year old M presents to the emergency department with the chief complaint of left pinky swelling/pain/redness, described as moderate, Quality is described as aching, and is localized to the left and upper extremity. Patient reports no radiation. Patient started experiencing this day(s) (1) and it has been constant. No relieving factors improve symptom(s), No exacerbating factors reported . Patient notes no other symptoms.. Patient did receive the following treatments prior to arrival, none Related Data Home Medications ?Medication ?Instructions ?Recorded ?Confirmed olanzapine 10 mg tablet 10 mg PO HS 04/27/14 01/22/25 hydroxyzine HCl 25 mg tablet 2 tab PO BID 01/26/16 01/22/25 gabapentin 300 mg capsule 300 mg PO TID 11/12/16 01/22/25 ibuprofen 600 mg tablet 600 mg PO TID #15 tabs 09/08/20 01/22/25 amoxicillin 875 mg-potassium 1 tab PO BID #14 tabs 01/22/25 clavulanate 125 mg tablet sulfamethoxazole 800 1 tab PO BID #14 tabs 01/22/25 mg-trimethoprim 160 mg tablet (Bactrim DS) Previous Rx's ?Medication ?Instructions ?Recorded ibuprofen 600 mg tablet 600 mg PO TID #15 tabs 09/08/20 amoxicillin 875 mg-potassium 1 tab PO BID #14 tabs 01/22/25 clavulanate 125 mg tablet sulfamethoxazole 800 1 tab PO BID #14 tabs 01/22/25 mg-trimethoprim 160 mg tablet (Bactrim DS) Allergies Allergy/AdvReac Type Severity Reaction Status Date / Time No Known Allergies Allergy Unverified 01/22/25 14:21 General Stated Complaint: Cellulitis ELIZA: 4 Review of Systems All systems reviewed & are unremarkable except as noted in HPI and below Constitutional Constitutional: Denies chills, Denies fever(s) and Denies weakness Cardiovascular Cardiovascular: Denies chest pain and Denies dyspnea Respiratory Respiratory: Denies cough and Denies dyspnea Gastrointestinal Gastrointestinal: Denies abdominal pain and Denies vomiting Integumentary/Breasts Skin/Breast: Reports erythema Neurologic Neurologic: Denies weakness Exam Const General: no acute distress Orientation: alert HENSD Head: normal to inspection Ears: external ears normal General nose exam: external nose normal Mouth: moist mucous membranes Eyes General: appearance normal, both eyes and all related structures Neck Neck: normal visual inspection Resp Effort & Inspection: normal respiratory effort and able to speak in complete sentences Cardio Rate: regular rate Skin General skin exam: no rashes or lesions noted Neuro General: patient alert and patient oriented x3 Extrem Left upper extremity: hand Details: warmth and swelling Psych Mental Status: mental status grossly normal Course Vital Signs Vital signs: Vital Signs Temperature 36.6 C 01/22/25 14:16 Pulse 66 01/22/25 14:16 Respiratory Rate 16 01/22/25 14:16 Blood Pressure 114/74 01/22/25 14:16 Pulse Oximetry 94 01/22/25 14:16 Temperature 36.6 C 01/22/25 14:16 Temperature Source Oral 01/22/25 14:16 Pulse 66 01/22/25 14:16 Respiratory Rate 16 01/22/25 14:16 Blood Pressure 114/74 01/22/25 14:16 Blood Pressure Position Sitting 01/22/25 14:16 Pulse Oximetry 94 01/22/25 14:16 Oxygen Delivery Method Room Air 01/22/25 14:16 Oxygen Flow Rate 0 01/22/25 14:16 Pain Level 8 01/22/25 14:16 Medical Decision Making 54-year-old male comes in stating that he has had issues with his left pinky swelling intermittently the past few months but for the last day he has had increased redness and swelling and pain more swelling usually has. He says that last night he had a little pimple appearing area on the left pinky that his popped and got pus out of. Despite that he still has pain and swelling today so came here. He has tenderness and swelling and warmth on the flexor portion of the pinky. He has pain with passive extension of the pinky. No fevers or chills. He has intact sensation. There is no other swelling to the rest of the hand. I suspect cellulitis versus flexor tenosynovitis. Will check a CBC, CMP, inflammatory markers and x-ray. Shortly after my initial exam the patient advised the nurse did not want any blood work or an x-ray. I went and discussed with him my concern that he could have flexor tenosynovitis which is a limb-threatening. I also advised that if it spread to the rest of his body there is a chance he could . He has medical decision making capacity and is refusing all labs and imaging and is choosing to leave AGAINST MEDICAL ADVICE. He was advised that he can return anytime if he changes his mind. I am going to place him on oral antibiotics but I stressed that this is not adequate treatment for flexor tenosynovitis. He voiced understanding of this and also was clinically sober during the exam. Patient decided he was willing to stay for x-ray and labs. Labs and x-ray came back without significant abnormalities. Patient eloped before I could go over results and plan with him. He had medical decision-making capacity. I did leave a message for him to call back to again reiterate that I would recommend him being in the hospital for treatment of his finger. Differential Diagnosis Differential Diagnosis: Cellulitis, flexor tenosynovitis PFSH All Active Problems (Updated 01/22/25 @ 14:52 by Biju Paniagua MD) Cellulitis of finger, left (Acute) Chest pain (Acute) Social History Smoking/Tobacco Use Status: Current every day Tobacco Type: cigarettes Tobacco: How many years used: 20 Smoking risk assessment performed?: Yes Alcohol Intake: never Drug use: Occasionally Substance use type: marijuana Housing: apartment Do you feel safe at home: Yes Do you feel safe in your relationship?: Yes
--- NOTE | 2025-01-22 14:37 | NUR.NOTE ---
Pt has refused all blood work, SALOME
--- NOTE | 2025-01-22 14:42 | NUR.NOTE ---
Pt refused X-Ray, FPJ
--- NOTE | 2025-01-22 15:00 | DI.RAD_ITS ---
Exam(s) XR FINGER LT LITTLE EXAM: XR FINGER LT LITTLE CLINICAL HISTORY: pain and swelling. TECHNIQUE: 2D digital imaging was performed. Three views. COMPARISON: None. FINDINGS: BONES: No acute fracture is present. No bony destructive lesion is seen. JOINTS: No dislocation present. Mild degenerative changes. SOFT TISSUE: Mild swelling. No foreign body. IMPRESSION: Mild degenerative changes. No acute abnormality. The preliminary [facility] report was reviewed. DATA REPOSITORY: RADIATION DOSE DELIVERED:
--- NOTE | 2025-01-22 15:02 | NUR.NOTE ---
After further discussion, pt has decided to fet labs and radiology done, SALOME
[2025-01-22 15:35] LABS: Abs Immature Grans 0.04 10^3/uL (0.0-0.06); HCT 43.5 % (40.0-50.0); HGB 14.6 g/dL (13.5-17.5); Immature Grans % 0.5 %; MCH 31.1 pg (27.0-33.0); MCHC 33.6 % (32.0-36.0); MCV 93 fL (80-95); MPV 8.8 fL (8.0-11.0); Platelet Count 360 10^3/uL (130-400); RBC 4.70 10^6/uL (4.36-5.78); RDW 13.3 % (11.8-14.1); RDW-SD 45.4 fL; WBC 7.57 10^3/uL (4.4-10.8)
[2025-01-22 15:46] LABS: ESR 17 mm/hr (0-20)
[2025-01-22 16:00] LABS: ALT 18 U/L (16-63); AST 20 U/L (15-37); Albumin 3.6 g/dL (3.4-5.0); Alkaline Phosphatase 90 U/L (46-116); Anion Gap 7.0 mmol/L (3-11); BUN 11 mg/dL (7-18); Bilirubin, Total 0.5 mg/dL (0.2-1.0); CO2 28.0 mmol/L (21.0-32.0); Calcium 8.8 mg/dL (8.5-10.1); Chloride 101 mmol/L (98-107); Estimated GFR 78.79 (mL/min/1.73m2); Glucose 110 mg/dL (74-106); Magnesium 1.9 mg/dL (1.8-2.4); Potassium 4.1 mmol/L (3.5-5.1); Sodium 136 mmol/L (136-145); Total Protein 7.8 g/dL (6.4-8.2)
--- NOTE | 2025-01-22 16:08 | DI.VRAD_ITS ---
PROCEDURE INFORMATION: Exam: XR Left Finger(s) Exam date and time: 01/22/2025 3:19 PM Age: 54 years old Clinical indication: Swelling and other: Pain; Fingers; Left TECHNIQUE: Imaging protocol: Radiologic exam of the left fingers. Views: Minimum 2 views. COMPARISON: No relevant prior studies available. FINDINGS: Bones/joints: Normal. Soft tissues: There is soft tissue swelling at the PIP joint level of the 5th digit. IMPRESSION: No evidence for fracture. Dictated and Authenticated by: Ele Miles MD. Orderin Arcelia Ivy MD
[2025-01-22 16:18] LABS: C-Reactive Protein < 0.50 mg/dL (<or=0.5)
--- NOTE | 2025-01-22 17:46 | NUR.NOTE ---
Nursing Note: Received call from patient looking for information regarding his discharge paperwork since he eloped prior to receiving. Patient was updated that his antibiotics were sent to his pharmacy in [place] and can be picked up in the morning. He was told to take either a probiotic or eat live culture yogurt in the afternoons between his doses. He verbalized understanding
== END 2025-01-22 17:07 | disposition left against medical advice (07) ==
PROVIDERS: Emergency Provider Emergency Medicine; PCP Physician Assistant
DX: L03.012 Cellulitis of left finger (principal); Z53.20 Procedure and treatment not carried out because of patient's decision for unspecified reasons
CPT/HCPCS: 99284 ×2; 36415; 80053; 85652; 87040; 73140; 83735; 85025; 86140

== ENCOUNTER 2025-05-17 09:31 | Emergency (ER) | payer MEDICARE, MEDICAID, SELFPAY ==
[2025-05-17 09:36] VITALS: BP 164/85; PULSE 75; RESP 16; TEMP 36.3; O2SAT 97
--- NOTE | 2025-05-17 10:00 | DI.RAD_ITS ---
Exam(s) XR FOOT LT COMPLETE EXAM: XR FOOT LT COMPLETE CLINICAL HISTORY: 4th toe inflammation, ankle pain and swelling. TECHNIQUE: 2D digital imaging was performed. Three views. COMPARISON: No exams were available for comparison FINDINGS: BONES: No acute fracture is present. No bony destructive lesion is seen. JOINTS: No dislocation present. SOFT TISSUE: Normal. IMPRESSION: Unremarkable radiographs of the left foot. DATA REPOSITORY: RADIATION DOSE DELIVERED:
--- NOTE | 2025-05-17 10:35 | W.ED.GENAD ---
Discharge Plan Disposition Patient Disposition: Home Condition: Stable Discharge Details Clinical Impression: Left ankle swelling, Arthritis of left ankle, Cellulitis of fourth toe, left Primary Care Provider: Sergei Loera ED Provider: Luis E Rodriguez Home Meds and New Rx's Prescriptions: New cephalexin 500 mg capsule 500 mg PO QID Qty: 28 0RF Continued olanzapine 10 MG tablet 10 mg PO HS hydroxyzine HCl 25 MG tablet 2 tab PO BID ibuprofen 600 mg tablet 600 mg PO TID Qty: 15 0RF gabapentin 300 MG capsule 800 mg PO BID Discharge Instructions Instructions: Ankle Sprain ED, Cellulitis (Skin Infection), Adult ED Additional Instructions: Use ankle stabilizer to provide support to your ankle over the next 1 to 2 weeks. It is recommended use crutches to rest your ankle. You declined crutches in the ER. I am concerned that the dry cracked skin on your toes has led to a mild cellulitis (skin infection). You were given initial dose of antibiotic here in the emerged permit. Please continue to take antibiotic as prescribed and complete the full course. Please follow-up with your primary care physician. Return to the emergency department immediately for any worsening or new concerning symptoms. Stand Alone Forms: Portal Information Discharge Data Discharge Date/Time-TO BE ENTERED AT DEPARTURE: 05/17/25 12:07 HPI General Mode of arrival: ambulatory. Date/Time Provider Initiated Documentation: 05/17/25 09:45. Limitations to Documentation: no limitations. Information obtained by: patient. HPI Narrative: HISTORY OF PRESENT ILLNESS 54-year-old male with hypertension presents with swollen, red left ankle for 2 days. No trauma or gout history. Swelling persistent, causing discomfort and sleep disruption. Ice ineffective. Severe pain and limited mobility. Dry, cracked skin on toes, applying balm. Related Data Home Medications ?Medication ?Instructions ?Recorded ?Confirmed olanzapine 10 mg tablet 10 mg PO HS 04/27/14 05/17/25 hydroxyzine HCl 25 mg tablet 2 tab PO BID 01/26/16 05/17/25 gabapentin 300 mg capsule 800 mg PO BID 11/12/16 05/17/25 ibuprofen 600 mg tablet 600 mg PO TID #15 tabs 09/08/20 05/17/25 cephalexin 500 mg capsule 500 mg PO QID #28 caps 05/17/25 Previous Rx's ?Medication ?Instructions ?Recorded ibuprofen 600 mg tablet 600 mg PO TID #15 tabs 09/08/20 cephalexin 500 mg capsule 500 mg PO QID #28 caps 05/17/25 Allergies Allergy/AdvReac Type Severity Reaction Status Date / Time No Known Allergies Allergy Unverified 05/17/25 09:42 General Stated Complaint: Orthopedic ELIZA: 3 Review of Systems All systems reviewed & are unremarkable except as noted in HPI and below Constitutional Constitutional: Denies fever(s) Exam Const General: cooperative and no acute distress HENMT Mouth: moist mucous membranes Cardio Rate: regular rate and not tachycardic Rhythm: regular rhythm Skin Other: Toes with dried cracked skin, left fourth toe with erythema, mild swelling Extrem General: no edema Left lower extremity: lower leg Details: other (Achilles intact); no palpable cords, no ecchymosis, no deformity and no unusual warmth, ankle Details: tenderness Location: of the lateral malleolus and anterolaterally and abnormal ROM Details: pain with active ROM Details: with plantar flexion; no warmth and no ecchymosis and foot Details: tenderness (all toes), toes with normal ROM and vascular exam Details: dorsalis pedis pulse present (2+) Course Vital Signs Vital signs: Vital Signs Temperature 36.3 C L 05/17/25 09:36 Pulse 75 05/17/25 09:36 Respiratory Rate 16 05/17/25 09:36 Blood Pressure 164/85 H 05/17/25 09:36 Pulse Oximetry 97 05/17/25 09:36 Temperature 36.3 C L 05/17/25 09:36 Pulse 75 05/17/25 09:36 Respiratory Rate 16 05/17/25 09:36 Blood Pressure 164/85 H 05/17/25 09:36 Pulse Oximetry 97 05/17/25 09:36 Oxygen Delivery Method Room Air 05/17/25 09:36 Oxygen Flow Rate 0 05/17/25 09:36 Medical Decision Making ASSESSMENT AND PLAN Initial Assessment: 54-year-old male with left ankle swelling and redness for 2 days. Significant pain, difficulty sleeping. No trauma or gout history. Differential Diagnosis: Trauma: Unlikely. Gout: Unlikely. Infection: Possible. X-ray to evaluate. Antibiotics if x-ray normal. ED Course: -- Ordered X-ray of left ankle. Administered ibuprofen and Tylenol. -- X-ray of the right foot reviewed and interpreted by radiology: Unremarkable radiographs of the left foot X-ray of the left ankle was reviewed and interpreted by radiology: Soft tissue edema. No evidence fracture or ankle mortise widening. --Plan to treat for cellulitis of the left fourth toe. Unclear etiology for arthritis of the ankle. Patient does note he walked a long distance yesterday and he may have overdid it. Plan for crutches and ankle stabilizer. Patient provided informed refusal of crutches. He will except ankle stabilizer. --Usual and customary discharge instructions were reviewed. I stressed the need for outpatient follow-up and to return immediately for any worsening or new concerning symptoms or if symptoms not improving as expected over the next few days. Final Assessment: Left ankle swelling for 2 days. Ordered X-ray. Pain managed with ibuprofen and Tylenol. Antibiotics considered if x-ray normal. Clinical Impression: Left ankle swelling. Dry, cracked skin on toes. Follow-Up: Keep toes dry and warm. Use gauze or paper towels to separate toes at home. Patient Education: Keep toes dry and warm. Use gauze or paper towels to separate toes at home. This document was written with the assistance of RAKESH Rodriguez. The patient consented to its use. PFSH All Active Problems (Updated 05/17/25 @ 11:45 by Luis E Rodriguez MD) Cellulitis of fourth toe, left (Acute) Arthritis of left ankle (Acute) Left ankle swelling (Acute) Chest pain (Acute) Social History Smoking/Tobacco Use Status: Current every day Tobacco Type: cigarettes Tobacco: How many years used: 20 Smoking risk assessment performed?: Yes Alcohol Intake: never Drug use: Occasionally Substance use type: marijuana Housing: apartment Do you feel safe at home: Yes Do you feel safe in your relationship?: Yes
[2025-05-17] MEDS: Acetaminophen 325 MG TAB 650 MG PO (10:40)
[2025-05-17] MEDS: Ketorolac 30 MG/ML VIAL IM (10:41)
--- NOTE | 2025-05-17 11:00 | DI.RAD_ITS ---
Exam(s) XR ANKLE LT COMPLETE EXAM: XR ANKLE LT COMPLETE CLINICAL HISTORY: pain, swelling, ttp lateral TECHNIQUE: 2D digital imaging was performed. Three views. COMPARISON: No exams were available for comparison FINDINGS: BONES: No acute fracture is present. No bony destructive lesion is seen. JOINTS:The ankle mortise is normally aligned. SOFT TISSUE: Normal swelling around the malleoli, greater medially. Also some swelling of the lower leg. IMPRESSION: Soft tissue edema. No evidence fracture or ankle mortise widening. DATA REPOSITORY: RADIATION DOSE DELIVERED:
[2025-05-17] MEDS: Cephalexin 500 MG CAP PO (11:42)
== END 2025-05-17 12:07 | disposition home or self-care (01) ==
PROVIDERS: Emergency Provider Student in an Organized Health Care Education/Training Program; PCP Physician Assistant
DX: L03.032 Cellulitis of left toe (principal); M19.072 Primary osteoarthritis, left ankle and foot; M25.472 Effusion, left ankle
CPT/HCPCS: 96372; 99284; 73610; 73630; 99283; J1885